=== PATIENT | female | born 1950 | race Two or more races ===

== ENCOUNTER 2024-01-04 22:17 | Emergency (ER) | payer OTHER ==
[~2024-01-04] VITALS: Ht 162.6 cm; Wt 60.1 kg
[2024-01-04 23:03] VITALS: BP 156/74; PULSE 92; RESP 16; O2SAT 99
[2024-01-04] MEDS ORDERED: HYDR-4798 PO (23:14)
== END 2024-01-04 23:56 | disposition home or self-care (01) ==
LOC: ER 22:17
DX: M54.50 Low back pain, unspecified (principal); G89.29 Other chronic pain; Z76.0 Encounter for issue of repeat prescription